=== PATIENT | male | born 1935 | race African-American/Black ===

== ENCOUNTER → 2017-07-21 | Emergency (ER) | payer OTHER ==
[~2017-07-21] VITALS: Ht 182.9 cm; Wt 79.8 kg
[~2017-07-21] MED LIST: ALPHAGAN P5 M1; AMOX-CLAV 875-1 EACH PO; ASA81 MG PO; AVALIDE 300-251 TAB PO; B COMPLEX; CENTRUM TABLET1 TAB PO; COZAAR100 MG; DORZOLAMIDE HCL10 ML; HYDRALAZINE HC100 MG PO; HYDRALAZINE HCL25 MG; HYDRALAZINE HCL50 MG; INDOCIN25 MG PO; LIPITOR20 MG PO; LUMIGAN2.5 M1 OP; METHAZOLAMIDE25 MG; PRED FORTE1 ML; PROBIOTIC & AC1 EACH PO; SIMVASTATIN20 MG; TRAMADOL HCL50 MG
== END | disposition home or self-care (01) ==
LOC: ER 08:16
DX: I80.3 Phlebitis and thrombophlebitis of lower extremities, unspecified (principal); I11.0 Hypertensive heart disease with heart failure; I50.89 Other heart failure

== ENCOUNTER 2023-08-03 16:48 | Emergency (ER) | payer OTHER ==
[~2023-08-03] VITALS: Ht 182.9 cm; Wt 79.4 kg
[2023-08-03 19:09] LABS: HEMATOCRIT 35.2 % (39.0-48.0); HEMOGLOBIN 11.6 g/dL (13-16.00); PLATELET COUNT 428 K/uL (150-450); RED BLOOD COUNT 4.46 M/uL (4.00-6.00); RED CELL DISTRIBUTION WIDTH 16.3 % (11.5-14.5)
[2023-08-03 19:30] LABS: CALCIUM 9.6 mg/dL (8.5-10.1); CREATININE SERUM 1.28 mg/dL (0.70-1.30); GFR 53.41; POTASSIUM 4.11 mEq/L (3.5-5.1)
[2023-08-03 20:26] LABS: URINE APPEARANCE Cloudy; URINE BILIRRUBIN Negative (NEGATIVE); URINE BLOOD Small; URINE COLOR Yellow; URINE GLUCOSE Negative (NEGATIVE); URINE LEUKOCYTE Large; URINE NITRATE Negative; URINE PROTEIN 30 (NEGATIVE)
[2023-08-03 20:30] LABS: URINE BACTERIA 781.1 uL (0.0-1933); URINE EPITHELIAL CELLS 1.7 uL (0.0-38.8); URINE WBC 982.6 uL (0.0-23.2)
[2023-08-03] MEDS ORDERED: DICLOFENAC POTA50 MG PO (20:57)
[2023-08-03] MEDS ORDERED: DUI500 PO (20:57)
== END 2023-08-03 21:27 | disposition home or self-care (01) ==
LOC: ER 16:48
PROVIDERS: General Practice
DX: M25.552 Pain in left hip (principal); W19.XXXA Unspecified fall, initial encounter; Y93.89 Activity, other specified; Y92.89 Other specified places as the place of occurrence of the external cause; M19.90 Unspecified osteoarthritis, unspecified site; I10 Essential (primary) hypertension; E78.49 Other hyperlipidemia; N39.0 Urinary tract infection, site not specified
CPT/HCPCS: 36415; 72040; 72170; 73551; 73560; 93005; 96372; 99284; J1885

== ENCOUNTER 2024-09-15 19:15 | Inpatient (IN) | payer OTHER ==
[~2024-09-15] VITALS: Ht 167.6 cm; Wt 54.4 kg
[~2024-09-15 19:15] MED LIST changes: +DICLOFENAC POTA50 MG PO; +DUI500 PO
[2024-09-15 21:11] LABS: HEMATOCRIT 35.1 % (39.0-48.0); HEMOGLOBIN 11.3 g/dL (13-16.00); MEAN CELL VOLUME 80.1 fL (80.0-100.00); MEAN CORPUSCULAR HEMOGLOBIN 25.7 pg (27.00-32.0); MEAN CORPUSCULAR HGB CONC 32.1 g/dl (32.0-36.0); PLATELET COUNT 539 K/uL (150-450); RED BLOOD COUNT 4.38 M/uL (4.00-6.00); RED CELL DISTRIBUTION WIDTH 16.6 % (11.5-14.5)
[2024-09-15 21:43] LABS: INR 1.37; PROTHROMBIN TIME 14.6 SECONDS (9.0-11.5)
[2024-09-15 21:47] LABS: ALBUMIN 2.5 gm/dL (3.4-5.0); BILIRUBIN TOTAL 0.46 mg/dL (0.3-1.2); BILIRUBIN,CONJUGATED 0.2 mg/dL (0.0-0.2); BILIRUBIN,UNCONJUGATED 0.26 mg/dL (0.0-0.6); CALCIUM 9.1 mg/dL (8.5-10.1); CREATININE SERUM 0.72 mg/dL (0.70-1.30); GFR 103.51; GLOBULINA 5.4 G/DL (2.4-3.5); TOTAL PROTEIN 7.9 gm/dL (6.4-8.2)
[2024-09-15 21:55] LABS: PARTIAL THROMBOPLASTIN TIME 39.9 SECONDS (22.0-34.0)
[2024-09-16] MEDS ORDERED: hydrOXYzine PAMOATE 25 MG CAPSULE PO ONE (03:30)
[2024-09-16] MEDS ORDERED: KETOROLAC TROMETHAMINE 30 MG VIAL IV ONE (05:00)
[2024-09-16] MEDS ORDERED: 0.9 % SODIUM CHLORIDE 1,000 ML IV SCH (05:00)
[2024-09-16] MEDS ORDERED: PIPERACILLIN/TAZOBACTAM SODIUM 3.375 GM in 0.9 % SODIUM CHLORIDE 100 ML IV SCH (13:10)
[2024-09-16] MEDS ORDERED: ONDANSETRON HCL 2 MG/ML VIAL IM PRN (15:15)
[2024-09-16] MEDS ORDERED: OxyCODONE HCL/APAP UD (PERCOCET) PO PRN (15:15)
[2024-09-16 16:42] VITALS: BP 149/76; O2SAT 97
[2024-09-16] MEDS ORDERED: MORPHINE SULFATE 2 MG/ML SYRINGE IV PRN (18:15)
[2024-09-17 00:27] VITALS: BP 111/64; O2SAT 98
[2024-09-17 06:22] LABS: MEAN CORPUSCULAR HEMOGLOBIN 26.2 pg (27.00-32.0); MEAN CORPUSCULAR HGB CONC 33.2 g/dl (32.0-36.0); PLATELET COUNT 524 K/uL (150-450); RED BLOOD COUNT 4.19 M/uL (4.00-6.00); RED CELL DISTRIBUTION WIDTH 16.5 % (11.5-14.5)
[2024-09-17 06:56] LABS: CREATININE SERUM 0.75 mg/dL (0.70-1.30); GFR 98.74; POTASSIUM 5.05 mEq/L (3.5-5.1)
[2024-09-17 08:00] VITALS: BP 125/70; O2SAT 95
[2024-09-17 16:25] VITALS: BP 116/64; O2SAT 97
[2024-09-17 23:50] VITALS: BP 139/73; O2SAT 97
[2024-09-18 08:05] VITALS: BP 160/90; O2SAT 98
[2024-09-18] MEDS ORDERED: LOSARTAN POTASSIUM 25 MG TABLET PO SCH (09:00)
[2024-09-18 09:35] LABS: CALCIUM 8.3 mg/dL (8.5-10.1); CREATININE SERUM 0.67 mg/dL (0.70-1.30); GFR 112.21; POTASSIUM 3.52 mEq/L (3.5-5.1)
== END 2024-09-18 16:09 | disposition home or self-care (01) | DRG 347 ==
LOC: ER 19:15 → SURG 09-16 12:42
PROVIDERS: Emergency Medicine; Specialist; ADMIT Student in an Organized Health Care Education/Training Program; ATTEND Student in an Organized Health Care Education/Training Program
PROC: 0DCP7ZZ Extirpation of Matter from Rectum, Via Natural or Artificial Opening (ICD-10-PCS; 2024-09-16)
PROC: BW21ZZZ Computerized Tomography (CT Scan) of Abdomen and Pelvis (ICD-10-PCS; 2024-09-16)
PROC: 0DH Gastrointestinal System, Insertion (ICD-10-PCS; principal; 2024-09-16 13:00)
DX: K56.41 Fecal impaction (principal); J18.9 Pneumonia, unspecified organism; K90.49 Malabsorption due to intolerance, not elsewhere classified; N39.0 Urinary tract infection, site not specified; R14.0 Abdominal distension (gaseous); M25.552 Pain in left hip; R10.9 Unspecified abdominal pain; Z74.01 Bed confinement status